=== PATIENT | male | born 1970 | race Caucasian/White ===

== ENCOUNTER 2018-10-08 08:33 | Emergency (ER) | payer SELFPAY ==
[~2018-10-08] VITALS: Ht 167.6 cm; Wt 83.9 kg
[2018-10-08 08:47] VITALS: BP 168/98; Ht 167.6 cm; Wt 83.9 kg
== END 2018-10-08 12:11 | disposition home or self-care (01) ==
LOC: ED 08:33
DX: S16.1XXA Strain of muscle, fascia and tendon at neck level, initial encounter (principal); S39.012A Strain of muscle, fascia and tendon of lower back, initial encounter; F07.81 Postconcussional syndrome; I10 Essential (primary) hypertension; E11.9 Type 2 diabetes mellitus without complications; V89.2XXA Person injured in unspecified motor-vehicle accident, traffic, initial encounter; Y93.89 Activity, other specified; Y92.413 State road as the place of occurrence of the external cause; Y99.8 Other external cause status
CPT/HCPCS: J1885; J2270